=== PATIENT | female | born 1965 | race Caucasian/White ===

== ENCOUNTER 2017-08-23 08:12 | Inpatient (IN) | payer OTHER ==
[~2017-08-23] VITALS: Ht 167.6 cm; Wt 86.0 kg
[2017-08-23] VITALS (8 sets, daily range): BP systolic 113–151; BP diastolic 55–78; PULSE 77–106; RESP 16–20; TEMP 98–99.5; O2SAT 92–97
[2017-08-23] MEDS ORDERED: ACETAMINOPHEN 325 MG TAB PO ONE (08:45)
[2017-08-23] MEDS ORDERED: guaiFENesin/CODEINE SYRUP 200 MG/20 MG/10 ML CUP PO ONE (08:45)
[2017-08-23] MEDS: RESP: ALBUTEROL 2.5 MG/IPRATROPIUM 0.5 MG NEB (SCH) INH (08:48)
[2017-08-23 09:08] LABS: BASOPHIL % 0.2 % (0.0-2.0); EOSINOPHIL # 0.4 TH/MM3 (0-0.4); EOSINOPHIL % 2.2 % (0.0-4.0); HEMATOCRIT 37.3 % (35.0-46.0); HEMOGLOBIN 12.6 GM/DL (11.6-15.3); LYMPH % 8.8 % (9.0-44.0); LYMPHOCYTE # 1.5 TH/MM3 (1.0-4.8); MEAN CELL VOLUME 86.3 FL (80.0-100.0); MEAN CORPUSCULAR HEMOGLOBIN 29.1 PG (27.0-34.0); MEAN CORPUSCULAR HGB CONC 33.7 % (32.0-36.0); MEAN PLATELET VOLUME 8.3 FL (7.0-11.0); MONO % 8.1 % (0.0-8.0); MONOCYTE # 1.4 TH/MM3 (0-0.9); NEUT % 80.7 % (16.0-70.0); PLATELET COUNT 314 TH/MM3 (150-450); RED BLOOD COUNT 4.32 MIL/MM3 (4.00-5.30); RED CELL DISTRIBUTION WIDTH 13.4 % (11.6-17.2); WHITE BLOOD COUNT 17.3 TH/MM3 (4.0-11.0)
--- NOTE | 2017-08-23 09:10 | RADRPT ---
EXAM DATE/TIME: 08/23/2017 08:47 [facility] COMPARISON: No previous studies available for comparison. INDICATIONS : Short of breath cold x 5 days. MEDICAL HISTORY : None. SURGICAL HISTORY : None. ENCOUNTER: Initial ACUITY: 1 day PAIN SCORE: 0/10 LOCATION: Bilateral chest FINDINGS: A single view of the chest demonstrates the lungs to be symmetrically aerated without evidence of mas s, infiltrate or effusion. The cardiomediastinal contours are unremarkable. Osseous structures are intact. CONCLUSION: Normal examination. Tutu Shelton MD on August 23, 2017 at 9:07 Board Certified Radiologist. This report was verified electronically.
[2017-08-23 09:27] LABS: TROPONIN I LESS THAN 0.02 NG/ML (0.02-0.05)
[2017-08-23 09:30] LABS: BICARBONATE 24.3 MEQ/L (21.0-32.0); CALCIUM 8.7 MG/DL (8.5-10.1); CHLORIDE 107 MEQ/L (98-107); CREATININE 0.72 MG/DL (0.50-1.00); GLOMERULAR FILTRATION RATE 85 ML/MIN (>89); GLUCOSE,RANDOM 102 MG/DL (74-106); SODIUM (NA) 141 MEQ/L (136-145)
[2017-08-23 09:31] LABS: BLOOD UREA NITROGEN 16 MG/DL (7-18)
[2017-08-23] MEDS ORDERED: SODIUM CHLOR 0.9% 1000 ML INJ 1,000 ML IV ONE (09:45)
--- NOTE | 2017-08-23 09:47 | PD ---
HPI Chief Complaint: Cold / Flu Symptoms Time Seen by Provider: 08:29 Travel History International Travel<30 days: No Contact w/Intl Traveler<30days: No Traveled to known affect area: No History of Present Illness HPI 52yo F with cough, throat pain, bilateral ear pain and sob for 5 days. Said she felt warm today. Has midsternal chest pain with cough that is sharp. Pt is a cig smoker. Denies any n/v, abdominal pain, dysuria, hematuria, focal weakness or numbness. Said she had CAD with stents before but last cardiac cath 09/2016 showed patent arteries. EF is a little low at 42%. Office Support Assistant is from [facility]. PFSH Social History Tobacco Use: No Allergies-Medications (Allergen,Severity, Reaction): Coded Allergies: No Known Allergies (Unverified , 08/23/17) Reported Meds & Prescriptions Reported Meds & Active Scripts Active Reported Quetiapine (Quetiapine Fumarate) 50 Mg Tab 50 Mg PO BID Depakote DR (Divalproex Sodium) 250 Mg Tabdr 250 Mg PO BID Gabapentin 800 Mg Tab 900 Mg PO QID Aspirin 81 Mg Chew 81 Mg CHEW ONCE Atorvastatin (Atorvastatin Calcium) 10 Mg Tab 10 Mg PO HS Lisinopril 20 Mg Tab 20 Mg PO DAILY Aldactone (Spironolactone) 25 Mg Tab 25 Mg PO DAILY Review of Systems Except as stated in HPI: all other systems reviewed are Neg Physical Exam Narrative GENERAL: 52yo F in mild distress. SKIN: Focused skin assessment warm/dry. HEAD: Atraumatic. Normocephalic. EYES: Pupils equal and round. No scleral icterus. No injection or drainage. ENT: Throat: Clear. No Exudate. Uvula midline. TM wnl bilaterally. NECK: Trachea midline. No JVD. CARDIOVASCULAR: Regular rate and rhythm. No murmur appreciated. RESPIRATORY: No accessory muscle use. Clear to auscultation. Breath sounds equal bilaterally. GASTROINTESTINAL: Abdomen soft, non-tender, nondistended. MUSCULOSKELETAL: No obvious deformities. No clubbing. No cyanosis. No edema. NEUROLOGICAL: Awake and alert. No obvious cranial nerve deficits. Motor grossly within normal limits. Normal speech. PSYCHIATRIC: Appropriate mood and affect; insight and judgment normal. Data Data Last Documented VS Vital Signs Date Time Temp Pulse Resp B/P (MAP) Pulse Ox O2 Delivery O2 Flow Rate FiO2 08/23/17 10:38 93 20 151/70 (97) 92 Room Air 08/23/17 08:13 99.5 Orders Orders Complete Blood Count With Diff (08/23/17 08:41) Basic Metabolic Panel (Bmp) (08/23/17 08:41) B-Type Natriuretic Peptide (08/23/17 08:41) Act Partial Throm Time (Ptt) (08/23/17 08:41) Prothrombin Time / Inr (Pt) (08/23/17 08:41) Troponin I (08/23/17 08:41) Electrocardiogram (08/23/17 08:41) Chest, Single Ap (08/23/17 08:41) Albuterol-Ipratropium Neb (Duoneb Neb) (08/23/17 08:45) Influenzae A/B Antigen (08/23/17 08:41) Guaifen-Cod 200-20 Mg/10ml Liq (Robituss (08/23/17 08:45) Acetaminophen (Tylenol) (08/23/17 08:45) Sodium Chlor 0.9% 1000 Ml Inj (Ns 1000 M (08/23/17 09:45) Blood Culture (08/23/17 11:00) Lactic Acid Sepsis Protocol (08/23/17 11:00) Ceftriaxone Inj (Rocephin Inj) (08/23/17 11:00) Azithromycin (Zithromax) (08/23/17 11:00) Ct Thorax/ Chest Wo Iv Contras (08/23/17 ) Admit Order (Ed Use Only) (08/23/17 11:42) Labs Laboratory Tests Test 08/23/17 08:50 08/23/17 09:33 08/23/17 11:10 White Blood Count 17.3 TH/MM3 Red Blood Count 4.32 MIL/MM3 Hemoglobin 12.6 GM/DL Hematocrit 37.3 % Mean Corpuscular Volume 86.3 FL Mean Corpuscular Hemoglobin 29.1 PG Mean Corpuscular Hemoglobin Concent 33.7 % Red Cell Distribution Width 13.4 % Platelet Count 314 TH/MM3 Mean Platelet Volume 8.3 FL Neutrophils (%) (Auto) 80.7 % Lymphocytes (%) (Auto) 8.8 % Monocytes (%) (Auto) 8.1 % Eosinophils (%) (Auto) 2.2 % Basophils (%) (Auto) 0.2 % Neutrophils # (Auto) 14.0 TH/MM3 Lymphocytes # (Auto) 1.5 TH/MM3 Monocytes # (Auto) 1.4 TH/MM3 Eosinophils # (Auto) 0.4 TH/MM3 Basophils # (Auto) 0.0 TH/MM3 CBC Comment AUTO DIFF Differential Total Cells Counted 100 Neutrophils % (Manual) 63 % Band Neutrophils % 15 % Lymphocytes % 10 % Monocytes % 8 % Eosinophils % 3 % Basophils % 1 % Neutrophils # (Manual) 13.5 TH/MM3 Differential Comment FINAL DIFF MANUAL Platelet Estimate NORMAL Platelet Morphology Comment NORMAL Red Cell Morphology Comment NORMAL Blood Urea Nitrogen 16 MG/DL Creatinine 0.72 MG/DL Random Glucose 102 MG/DL Calcium Level 8.7 MG/DL Sodium Level 141 MEQ/L Potassium Level 4.8 MEQ/L Chloride Level 107 MEQ/L Carbon Dioxide Level 24.3 MEQ/L Anion Gap 10 MEQ/L Estimat Glomerular Filtration Rate 85 ML/MIN Troponin I LESS THAN 0.02 NG/ML Ethyl Alcohol Level LESS THAN 3 MG/DL Prothrombin Time 10.2 SEC Prothromb Time International Ratio 1.0 RATIO Activated Partial Thromboplast Time 26.9 SEC B-Type Natriuretic Peptide 23 PG/ML Lactic Acid Level 1.1 mmol/L MDM Medical Decision Making Medical Screen Exam Complete: Yes Emergency Medical Condition: Yes Interpretation(s) EKG: NSR 97bpm. Normal axis. Mild ST depression in V4-V6. TWI I, aVL, V4-V6. Differential Diagnosis URI vs. influenza vs. pneumonia Narrative Course 52yo F with sob, cough and chest pain with cough. Labs reviewed, leukocytosis at 17.3. She has 15% bandemia. Troponin negative. BNP 23. CXR negative. Pt is tachycardic at 106bpm initially and given NS IVF and heart rate is now 90s. Pt given robitussin, duonebs x2 because she is a smoker, acetaminophen. Pt reevaluated at bedside and feels a little better but still sob. Given that she has bandemia and signs of ischemia on EKG with no prior to compare to, will admit for sepsis and obtain blood culture, lactic acid and empirically treat with antibiotics. Will obtain CT chest- to further evaluate for any small pneumonia. Discussed with Dr. Reina and accepted to her service for sepsis with bandemia. Sepsis Criteria SIRS Criteria (2 or more): Heart rate over 90, WBC > 76940, < 4000 or > 10% bands Sepsis Criteria (SIRS+source): Infect source susp/known Diagnosis Primary Impression: Sepsis Qualified Codes: A41.9 - Sepsis, unspecified organism Admitting Information Admitting Physician Requests: it Brooklyn Milian DO Aug 23, 2017 09:47
[2017-08-23] MEDS ORDERED: ASPI-516 CHEW (09:50)
[2017-08-23] MEDS ORDERED: ATOR10TA15 PO (09:50)
[2017-08-23] MEDS ORDERED: LISI-515 PO (09:50)
[2017-08-23] MEDS ORDERED: DEPA250T2 PO (09:50)
[2017-08-23] MEDS ORDERED: SPIR25 PO (09:50)
[2017-08-23] MEDS ORDERED: GABA800T PO (09:50)
[2017-08-23] MEDS ORDERED: QUET5TAB PO (09:50)
[2017-08-23 10:00] LABS: PROTHROMBIN TIME - PATIENT 10.2 SEC (9.8-11.6)
[2017-08-23 10:00] LABS: BANDS 15 % (0-6); BASOPHILS 1 % (0-2); LYMPHOCYTES 10 % (9-44); MONOCYTES 8 % (0-8); NEUTROPHIL # MANUAL DIFF 13.5 TH/MM3 (1.8-7.7); POLYS (SEG NEUTROPHILS) 63 % (16-70)
[2017-08-23] MEDS ORDERED: AZITHROMYCIN 250 MG TAB PO ONE (11:00)
[2017-08-23] MEDS ORDERED: cefTRIAXone INJ 1,000 MG in SODIUM CHLORIDE 0.9% INJ 100 ML IV ONE (11:00)
[2017-08-23] MEDS ORDERED: SODIUM CHLORIDE 0.9% FLUSH 10 ML FLUSH IV FLUSH PRN (11:45)
[2017-08-23] MEDS ORDERED: NALOXONE HCL 0.4 MG/ML AMP IV PUSH PRN (11:45)
--- NOTE | 2017-08-23 11:52 | RADRPT ---
EXAM DATE/TIME: 08/23/2017 11:14 [facility] COMPARISON: No previous studies available for comparison. INDICATIONS : Cough and cogestion since Tuesday. RADIATION DOSE: 6.83 CTDIvol (mGy) MEDICAL HISTORY : Seizures. Hypertension. Cardiovascular disease SURGICAL HISTORY : Hysterectomy. ENCOUNTER: Initial ACUITY: 4 - 6 days PAIN SCALE: 7/10 LOCATION: chest TECHNIQUE: Volumetric scanning of the chest was performed. Using automated exposure control and adjustment of t he mA and/or kV according to patient size, radiation dose was kept as low as reasonably achievable to obtain optimal diagnostic quality images. DICOM format image data is available electronically for r eview and comparison. Follow-up recommendations for detected pulmonary nodules are based at a minimum on nodule size and pa tient risk factors according to Fleischner Society Guidelines. FINDINGS: LUNGS: There is no consolidation or pneumothorax. No concerning pulmonary nodule is visualized. There is mi nimal peribronchial cuffing in the right upper lobe. Some consolidation could be atelectasis in the r ight upper lobe adjacent to the fissure PLEURAE: There is no pleural thickening or pleural effusion. MEDIASTINUM: The heart and great vessels demonstrate no acute abnormality. There is clearly abnormal mediastinal a denopathy in the pretracheal, subcarinal and both hilar regions. Coronary atherosclerotic disease AXILLAE: Within normal limits. No lymphadenopathy. MUSCULOSKELETAL: Within normal limits for patient age. MISCELLANEOUS: The visualized upper abdominal organs demonstrate no acute abnormality. CONCLUSION: Peribronchial cuffing the right upper lobe with some groundglass of a likely atelectasis. Definite me diastinal adenopathy and hilar fullness of uncertain significance. Tutu Shelton MD on August 23, 2017 at 11:48 Board Certified Radiologist. This report was verified electronically.
--- NOTE | 2017-08-23 15:12 | EKG ---
Date Performed: 08/23/2017 Time Performed: 09:54:09 PTAGE: 52 years EKG: Sinus rhythm POSSIBLE RIGHT VENTRICULAR CONDUCTION DELAY Nonspecific ST and T wave abnormalities ABNORMAL ECG No prior electrocardiogram available for comparison. DOCTOR: Berny Sarabia Interpretating Date/Time 08/23/2017 15:10:40
[2017-08-23 16:01] LABS: BILIRUBIN, URINE NEG (NEG); BLOOD, URINE SMALL (NEG); GLUCOSE,URINE NEG (NEG); KETONE, URINE NEG (NEG); MUCUS URINE FEW /lpf (OCC); NITRITE,URINE NEG (NEG); PH, URINE 5.5 (5.0-8.5); SQUAMOUS EPITHELIAL CELL URINE <1 /hpf (0-5); URINE COLOR LIGHT-YELLOW (YELLW/STRAW); URINE LEUKOCYTE ESTERASE NEG (NEG)
[2017-08-23] MEDS ORDERED: NITROGLYCERIN 0.4 MG SL 25 TABS/BTL SL PRN (17:15)
[2017-08-23] MEDS ORDERED: ASPIRIN 325 MG TAB PO ONE (17:15)
[2017-08-23] MEDS ORDERED: ASPIRIN 81 MG CHEW TAB CHEW SCH (17:30)
[2017-08-23] MEDS ORDERED: SENNOSIDES 8.6 MG TAB PO PRN (17:45)
[2017-08-23] MEDS ORDERED: MAGNESIUM HYDROXIDE SUSP 30 ML CUP PO PRN (17:45)
[2017-08-23] MEDS ORDERED: ACETAMINOPHEN 325 MG TAB PO PRN (17:45)
[2017-08-23] MEDS ORDERED: ONDANSETRON HCL 4 MG/2 ML VIAL IVP PRN (17:45)
[2017-08-23] MEDS ORDERED: LACTULOSE SYRUP 20 GM/30 ML CUP PO PRN (17:45)
[2017-08-23] MEDS ORDERED: BISACODYL 10 MG SUPP RECTAL PRN (17:45)
[2017-08-23] MEDS ORDERED: GABAPENTIN 400 MG CAP PO SCH (18:00)
[2017-08-23] MEDS ORDERED: RESP: ALBUTEROL 2.5 MG/3 ML NEB (PRN) NEB (18:00)
--- NOTE | 2017-08-23 18:05 | HHI.HP ---
HPI Service [facility] Hospitalists Primary Care Physician No Primary Care Physician Admission Diagnosis Sepsis, chest pain Diagnoses: Chief Complaint: Cough with sputum production Fatigue Fever and chills Chest pain Shortness of breath Travel History International Travel<30 Days: No Contact w/Intl Traveler <30 Da: No Traveled to Known Affected Are: No Sepsis Criteria SIRS Criteria (2 or more): Heart rate over 90, WBC > 33066, < 4000 or > 10% bands Sepsis Criteria (SIRS+source): Infect source susp/known Criteria Outcome: Meets sepsis criteria History of Present Illness This is a 52-year-old female with a past medical history significant for coronary artery disease status post cardiac stent implantation in 2008 with recent cardiac catheterization September 2016 in [facility] showing patent arteries, CHF with reported EF 42%, dyslipidemia and bipolar disorder who presents to [facility] ED with complaints of shortness of breath, cough with sputum production, sore throat, bilateral ear pain, body ache and pleuritic chest pain with cough for the past 5 days. She states she decided to come in to the ED today after developing chills and involuntary shaking. She reports generalized fatigue. She describes her chest pain as midsternal, sharp , nonradiating and associated with cough. She states she's been feverish but has not recorded a temperature. States that her cough is productive and reports that it's "many colors". She denies any nausea, vomiting or abdominal pain. She reports a good appetite. She lives in transitional group housing and states that multiple residents are sick as well. She smokes about a pack of cigarettes a day. She recently moved to the area from [facility] in March of this year. She denies any complaints of bilateral lower extremity swelling or edema. She does not have a sap basis consultant that she follows with in the area. Shee has a history of alcohol abuse but no longer drinks. Review of Systems Except as stated in HPI: all other systems reviewed are Neg Past Family Social History Past Medical History Hypertension Coronary artery disease status post previous cardiac stent implants 2008 with recent cardiac catheterization September 2016 revealing patent arteries Dyslipidemia CHF with reported EF 42% Bipolar disorder Tobaccoism Past Surgical History Pilonidal cysts Bilateral carpal tunnel release Hysterectomy Hernia repair Reported Medications Quetiapine (Quetiapine Fumarate) 50 Mg Tab 50 Mg PO BID Depakote DR (Divalproex Sodium) 250 Mg Tabdr 250 Mg PO BID Gabapentin 800 Mg Tab 900 Mg PO QID Aspirin 81 Mg Chew 81 Mg CHEW ONCE Atorvastatin (Atorvastatin Calcium) 10 Mg Tab 10 Mg PO HS Lisinopril 20 Mg Tab 20 Mg PO DAILY Aldactone (Spironolactone) 25 Mg Tab 25 Mg PO DAILY Allergies: Coded Allergies: No Known Allergies (Unverified , 08/23/17) Active Ordered Medications Current Medications Medications (Trade) Dose Ordered Sig/Phill Route Start Time Stop Time Status Last Admin (NS Flush) 2 ml UNSCH PRN IV FLUSH 08/23/17 11:45 (NS Flush) 2 ml BID IV FLUSH 08/23/17 21:00 (Narcan Inj) 0.4 mg UNSCH PRN IV PUSH 08/23/17 11:45 Levofloxacin/ Dextrose 150 ml @ 100 mls/hr Q24H IV 08/24/17 09:00 (Flu (Quadrivalent) Vaccine Inj) 0.5 ml ONCE ONCE IM 08/24/17 10:00 08/24/17 10:01 Family History Father, congestive heart failure Social History Patient reports tobacco use of a pack per day starting when she was a teenager. She has a history of alcoholism but no longer drinks. She denies any illicit drug use. Physical Exam Vital Signs Vital Signs Date Time Temp Pulse Resp B/P (MAP) Pulse Ox O2 Delivery O2 Flow Rate FiO2 08/23/17 15:37 98.2 92 18 126/71 (89) 97 08/23/17 13:21 98.0 91 18 117/55 (75) 94 08/23/17 13:15 08/23/17 13:08 83 18 113/55 (74) 96 Room Air 08/23/17 10:38 93 20 151/70 (97) 92 Room Air 08/23/17 08:13 99.5 106 16 138/77 (97) 97 Room Air Physical Exam GENERAL: This is a well-nourished, well-developed toxic-appearing female patient, in no apparent distress. Awake and alert. SKIN: No rashes, ecchymoses or lesions. Warm and dry. HEAD: Atraumatic. Normocephalic. No temporal or scalp tenderness. EYES: Pupils equal round and reactive. Extraocular motions intact. No scleral icterus. No injection or drainage. ENT: Nose without bleeding or purulent drainage. Throat without erythema, tonsillar hypertrophy or exudate. Uvula midline. Airway patent. NECK: Trachea midline. No lymphadenopathy. Supple, nontender, no meningeal signs. CARDIOVASCULAR: Regular rate and rhythm without murmurs, gallops, or rubs. RESPIRATORY: Diminished breath sounds, diffuse expiratory wheezing throughout. GASTROINTESTINAL: Abdomen soft, non-tender, nondistended. No hepato-splenomegaly , or palpable masses. No guarding. MUSCULOSKELETAL: Extremities without clubbing, cyanosis, or edema. No joint tenderness, effusion, or edema noted. No calf tenderness. NEUROLOGICAL: Awake and alert. Able to move all extremities spontaneously. No focal neurologic finding. Normal speech. Laboratory Laboratory Tests Test 08/23/17 08:50 08/23/17 09:33 08/23/17 11:10 08/23/17 15:40 White Blood Count 17.3 Red Blood Count 4.32 Hemoglobin 12.6 Hematocrit 37.3 Mean Corpuscular Volume 86.3 Mean Corpuscular Hemoglobin 29.1 Mean Corpuscular Hemoglobin Concent 33.7 Red Cell Distribution Width 13.4 Platelet Count 314 Mean Platelet Volume 8.3 Neutrophils (%) (Auto) 80.7 Lymphocytes (%) (Auto) 8.8 Monocytes (%) (Auto) 8.1 Eosinophils (%) (Auto) 2.2 Basophils (%) (Auto) 0.2 Neutrophils # (Auto) 14.0 Lymphocytes # (Auto) 1.5 Monocytes # (Auto) 1.4 Eosinophils # (Auto) 0.4 Basophils # (Auto) 0.0 CBC Comment AUTO DIFF Differential Total Cells Counted 100 Neutrophils % (Manual) 63 Band Neutrophils % 15 Lymphocytes % 10 Monocytes % 8 Eosinophils % 3 Basophils % 1 Neutrophils # (Manual) 13.5 Differential Comment FINAL DIFF MANUAL Platelet Estimate NORMAL Platelet Morphology Comment NORMAL Red Cell Morphology Comment NORMAL Blood Urea Nitrogen 16 Creatinine 0.72 Random Glucose 102 Calcium Level 8.7 Sodium Level 141 Potassium Level 4.8 Chloride Level 107 Carbon Dioxide Level 24.3 Anion Gap 10 Estimat Glomerular Filtration Rate 85 Troponin I LESS THAN 0.02 Ethyl Alcohol Level LESS THAN 3 Prothrombin Time 10.2 Prothromb Time International Ratio 1.0 Activated Partial Thromboplast Time 26.9 B-Type Natriuretic Peptide 23 Lactic Acid Level 1.1 Urine Color LIGHT-YELLOW Urine Turbidity CLEAR Urine pH 5.5 Urine Specific Gilbert 1.010 Urine Protein NEG Urine Glucose (UA) NEG Urine Ketones NEG Urine Occult Blood SMALL Urine Nitrite NEG Urine Bilirubin NEG Urine Urobilinogen LESS THAN 2.0 Urine Leukocyte Esterase NEG Urine RBC 2 Urine Squamous Epithelial Cells <1 Urine Mucus FEW Microscopic Urinalysis Comment CULT NOT INDICATED Urine Opiates Screen POS Urine Barbiturates Screen NEG Urine Amphetamines Screen NEG Urine Benzodiazepines Screen NEG Urine Cocaine Screen NEG Urine Cannabinoids Screen NEG Date/Time Source Procedure Growth Status 08/23/17 11:18 Blood Peripheral Aerobic Blood Culture Pending Received 08/23/17 11:18 Blood Peripheral Anaerobic Blood Culture Pending Received 08/23/17 09:15 Nasal Aspirate Influenza Types A,B Antigen (DEENA) - Final NEGATIVE FOR FLU A AND B ANTIGEN.... Complete Result Diagram: 08/23/17 0850 08/23/17 0850 Imaging Current Medications Medications (Trade) Dose Ordered Sig/Phill Route Start Time Stop Time Status Last Admin (NS Flush) 2 ml UNSCH PRN IV FLUSH 08/23/17 11:45 (NS Flush) 2 ml BID IV FLUSH 08/23/17 21:00 (Narcan Inj) 0.4 mg UNSCH PRN IV PUSH 08/23/17 11:45 Levofloxacin/ Dextrose 150 ml @ 100 mls/hr Q24H IV 08/24/17 09:00 (Flu (Quadrivalent) Vaccine Inj) 0.5 ml ONCE ONCE IM 08/24/17 10:00 08/24/17 10:01 Caprini VTE Risk Assessment Caprini VTE Risk Assessment: No/Low Risk (score <= 1) Caprini Risk Assessment Model Point Value = 1 Point Value = 2 Point Value = 3 Point Value = 5 Age 41-60 Minor surgery BMI > 25 kg/m2 Swollen legs Varicose veins or History of unexplained or recurrent spontaneous Oral contraceptives or hormone replacement Sepsis (< 1 month) Serious lung disease, including pneumonia (< 1 month) Abnormal pulmonary function Acute myocardial infarction Congestive heart failure (< 1 month) History of inflammatory bowel disease Medical patient at bed rest Age 61-74 Arthroscopic surgery Major open surgery (> 45 min) Laparoscopic surgery (> 45 min) Malignancy Confined to bed (> 72 hours) Immobilizing plaster cast Central venous access Age >= 75 History of VTE Family history of VTE Factor V Leiden Prothrombin [id number] Lupus anticoagulant Anticardiolipin antibodies Elevated serum homocysteine Heparin-induced thrombocytopenia Other congenital or acquired thrombophilia Stroke (< 1 month) Elective arthroplasty Hip, pelvis, or leg fracture Acute spinal cord injury (< 1 month) Prophylaxis Regimen Total Risk Factor Score Risk Level Prophylaxis Regimen 0-1 Low Early ambulation 2 Moderate Order ONE of the following: *Sequential Compression Device (SCD) *Heparin 5000 units SQ BID 3-4 Higher Order ONE of the following medications: *Heparin 5000 units SQ TID *Enoxaparin/Lovenox 40 mg SQ daily (WT < 150 kg, CrCl > 30 mL/min) *Enoxaparin/Lovenox 30 mg SQ daily (WT < 150 kg, CrCl > 10-29 mL/min) *Enoxaparin/Lovenox 30 mg SQ BID (WT < 150 kg, CrCl > 30 mL/min) AND/OR *Sequential Compression Device (SCD) 5 or more Highest Order ONE of the following medications: *Heparin 5000 units SQ TID (Preferred with Epidurals) *Enoxaparin/Lovenox 40 mg SQ daily (WT < 150 kg, CrCl > 30 mL/min) *Enoxaparin/Lovenox 30 mg SQ daily (WT < 150 kg, CrCl > 10-29 mL/min) *Enoxaparin/Lovenox 30 mg SQ BID (WT < 150 kg, CrCl > 30 mL/min) AND *Sequential Compression Device (SCD) Assessment and Plan Assessment and Plan Patient meets sepsis criteria with a elevated heart rate of 106, leukocytosis with white count of 17.3 and bandemia, rigors with source of community acquired pneumonia Suspect underlying COPD, in acute exacerbation - Chest x-ray feels no acute disease process, images personally reviewed - Chest CT reveals peribronchial cuffing in the right upper lobe with ground glass appearance, likely atelectasis, mediastinal adenopathy and hilar fullness , images reviewed personally - Lactic acid 1.1 - Patient given IV azithromycin and ceftriaxone in the ED. Continue with IV Levaquin. - Prednisone 40mg po daily. Mucinex ER 600mg BID. - Scheduled DuoNebs - Influenza negative. Monitor white count. Obtain UA. Follow up on blood cultures. Obtain sputum culture. Obtain antigen for Legionella and pneumococcal. - IS at bedside, encourage use - Supplemental oxygen to maintain O2 sats above 92%. - Supportive care Chest pain, atypical, R/O ACS CAD s/p cardiac stent implants 2008 Cardiac catheterization 09/2016 revealing patent - complains of midsternal chest pain with cough, likely pleuritic - EKG revealing ST depressions in lateral leads, personally reviewed. Initial troponin negative. Continue to trend cardiac enzymes and EKGs. - Continuous cardiac monitoring - Obtain fasting lipid panel - ASA 325mg now. Continue on ASA 81mg daily. - IV Morphine and Nitro sl prn chest pain CHF with reported EF 42%, not in acute exacerbation - Patient appears euvolemic - BNP 23 - Resume patient on home dose of lisinopril 20 mg daily, Aldactone 25 mg daily - Initiate low-dose beta monet - Monitor for any signs of fluid overload Dyslipidemia - Resume patient on home dose of atorvastatin 10 mg daily Ongoing tobaccoism - Discussed with patient importance of cessation. Nicotine patch ordered. Bipolar disorder - Resume patient on Depakote 250 mg by mouth twice a day, gabapentin 900 mg 4 times a day and Quetiapine 50mg po BID DVT prophylaxis - Bilateral SCD/SARAH hose Discussed Condition With Patient, nursing staff and Dr. Palomino Physician Certification 2 Midnight Certification Type: Admission for Inpatient Services Order for Inpatient Services The services are ordered in accordance with Medicare regulations or non- Medicare payer requirements, as applicable. In the case of services not specified as inpatient-only, they are appropriately provided as inpatient services in accordance with the 2-midnight benchmark. Estimated LOS (days): 3 3 days is the estimated time the patient will need to remain in the hospital, assuming treatment plan goals are met and no additional complications. Post-Hospital Plan: Not yet determined Zoraida Bowens Aug 23, 2017 18:05
[2017-08-23] MEDS ORDERED: MORPHINE SULFATE 2 MG/ML INJ IV PRN (18:30)
[2017-08-23] MEDS ORDERED: PILL SPLITTER OTHER PRN (18:30)
[2017-08-23] MEDS: predniSONE 20 MG TAB PO SCH (18:57)
[2017-08-23] MEDS: NICOTINE 21 MG/24 HR PATCH T-DERMAL SCH (18:57)
[2017-08-23] MEDS: GABAPENTIN 300 MG CAP PO SCH (19:05)
[2017-08-23] MEDS: RESP: ALBUTEROL 2.5 MG/IPRATROPIUM 0.5 MG NEB (SCH) NEB (20:37)
--- NOTE | 2017-08-23 21:36 | EKG ---
Date Performed: 08/23/2017 Time Performed: 17:39:26 PTAGE: 52 years EKG: Sinus rhythm WITH OCCASIONAL VENTRICULAR PREMATURE COMPLEXES LOW QRS VOLTAGE IN PRECORDIAL LEADS INCOMPLETE RIGHT BUNDLE BRANCH BLOCK SEPTAL MYOCARDIAL INFARCTION ABNORMAL ECG Compared to prior electrocardiogram, P remature ventricular contractions are now present . NO PREVIOUS TRACING DOCTOR: Berny Sarabia Interpretating Date/Time 08/23/2017 21:36:20
[2017-08-24] VITALS (9 sets, daily range): BP systolic 100–132; BP diastolic 55–67; PULSE 60–98; RESP 15–18; TEMP 97.6–98.1; O2SAT 92–96
[2017-08-24] MEDS: guaiFENesin E.R. 600 MG TAB PO SCH ×3 (00:40→20:52)
[2017-08-24] MEDS: DIVALPROEX SODIUM DELAYED RELEASE 250 MG TAB PO SCH ×3 (00:40→20:52)
[2017-08-24] MEDS: DOCUSATE SODIUM 50 MG/SENNA 8.6 MG TAB PO SCH ×3 (00:41→20:53)
[2017-08-24] MEDS: METOPROLOL TARTRATE 25 MG TAB PO SCH ×2 (00:41→08:45)
[2017-08-24] MEDS: ATORVASTATIN 10 MG TAB PO SCH ×2 (00:41→20:53)
[2017-08-24] MEDS: QUEtiapine FUMARATE 25 MG TAB PO SCH ×3 (00:41→20:53)
[2017-08-24] MEDS: GABAPENTIN 300 MG CAP PO SCH ×5 (00:41→20:52)
[2017-08-24] MEDS: SODIUM CHLORIDE 0.9% FLUSH 10 ML FLUSH IV FLUSH SCH ×3 (00:42→20:52)
[2017-08-24] MEDS: RESP: ALBUTEROL 2.5 MG/IPRATROPIUM 0.5 MG NEB (SCH) NEB ×4 (08:00→20:38)
[2017-08-24] MEDS: LEVOFLOXACIN 750 MG PREMIX INJ 150 ML IV SCH (08:45)
[2017-08-24] MEDS: SPIRONOLACTONE 25 MG TAB PO SCH (08:45)
[2017-08-24] MEDS: REMOVE OLD PATCH T-DERMAL SCH (08:45)
[2017-08-24] MEDS: NICOTINE 21 MG/24 HR PATCH T-DERMAL SCH (08:45)
[2017-08-24] MEDS: LISINOPRIL 20 MG TAB PO SCH (08:45)
[2017-08-24] MEDS: predniSONE 20 MG TAB PO SCH (08:45)
--- NOTE | 2017-08-24 08:55 | EKG ---
Date Performed: 08/23/2017 Time Performed: 23:37:44 PTAGE: 52 years EKG: Sinus rhythm NONSPECIFIC T-WAVE ABNORMALITY BORDERLINE ECG Compared to prior electrocardiogram, Premature ventric ular contractions no longer present. PREVIOUS TRACING : 08/23/2017 17.39 DOCTOR: Berny Sarabia Interpretating Date/Time 08/24/2017 08:54:26
[2017-08-24] MEDS ORDERED: INFLUENZA VIRUS VACCINE (QUADRIVALENT) 0.5 ML SYR IM ONE (10:00)
[2017-08-24 11:09] LABS: BASOPHIL % 0.1 % (0.0-2.0); EOSINOPHIL % 0.1 % (0.0-4.0); HEMATOCRIT 34.9 % (35.0-46.0); HEMOGLOBIN 11.5 GM/DL (11.6-15.3); LYMPH % 7.8 % (9.0-44.0); LYMPHOCYTE # 1.2 TH/MM3 (1.0-4.8); MEAN CELL VOLUME 87.5 FL (80.0-100.0); MEAN CORPUSCULAR HEMOGLOBIN 28.8 PG (27.0-34.0); MONO % 4.6 % (0.0-8.0); MONOCYTE # 0.7 TH/MM3 (0-0.9); NEUT % 87.4 % (16.0-70.0); PLATELET COUNT 291 TH/MM3 (150-450); RED BLOOD COUNT 3.98 MIL/MM3 (4.00-5.30); RED CELL DISTRIBUTION WIDTH 13.5 % (11.6-17.2)
[2017-08-24 11:28] LABS: BICARBONATE 28.6 MEQ/L (21.0-32.0); CALCIUM 8.5 MG/DL (8.5-10.1); CREATININE 0.75 MG/DL (0.50-1.00)
[2017-08-24 11:31] LABS: CHOLESTEROL/ HDL RATIO 3.69 RATIO; HDL CHOLESTEROL 41.4 MG/DL (40.0-60.0)
--- NOTE | 2017-08-24 12:23 | HHI.PR ---
Subjective Remarks in no acute distress. still with some cough but she says that overall she's feeling better today. no chest pain. afebrile. Objective Vitals Vital Signs Date Time Temp Pulse Resp B/P (MAP) Pulse Ox O2 Delivery O2 Flow Rate FiO2 08/24/17 08:33 115/61 (79) 08/24/17 08:24 97.9 79 18 106/58 (74) 95 08/24/17 06:55 60 08/24/17 04:18 97.6 65 17 132/67 (88) 94 08/23/17 23:32 98.1 77 18 123/64 (83) 93 08/23/17 21:09 98.0 97 18 124/78 (93) 96 08/23/17 20:39 94 08/23/17 15:37 98.2 92 18 126/71 (89) 97 08/23/17 13:21 98.0 91 18 117/55 (75) 94 08/23/17 13:15 08/23/17 13:08 83 18 113/55 (74) 96 Room Air I/O 08/23/17 08/23/17 08/23/17 08/24/17 08/24/17 08/24/17 07:00 15:00 23:00 07:00 15:00 23:00 Intake Total 1100 ml Balance 1100 ml Intake IV Total 1100 ml Result Diagram: 08/24/17 1038 08/24/17 1038 Imaging Last Impressions Chest X-Ray 08/23/17 0841 Signed Impressions: Service Date/Time: Wednesday, August 23, 2017 08:47 - CONCLUSION: Normal examination. Tutu Shelton MD Chest CT 08/23/17 0000 Signed Impressions: Service Date/Time: Wednesday, August 23, 2017 11:14 - CONCLUSION: Peribronchial cuffing the right upper lobe with some groundglass of a likely atelectasis. Definite mediastinal adenopathy and hilar fullness of uncertain significance. Tutu Shelton MD Objective Remarks GENERAL: This is a well-nourished, well-developed patient, in no apparent distress. CARDIOVASCULAR: Regular rate and regular rhythm without murmurs, gallops, or rubs. RESPIRATORY: Clear to auscultation. Breath sounds equal bilaterally. No wheezes , rales, or rhonchi. GASTROINTESTINAL: Abdomen soft, non-tender, nondistended. Normal, active bowel sounds MUSCULOSKELETAL: Extremities without clubbing, cyanosis, or edema. NEURO: Alert & Oriented x4 to person, place, time, situation. Moves all ext x4 Medications and IVs Inpatient Medications Acetaminophen (Tylenol) 650 mg Q4H PRN PO TEMP > 100.4; Start 08/23/17 at 17: 45 Albuterol Sulfate (Albuterol Neb) 2.5 mg Q2HR NEB PRN NEB cough, dyspnea, wheezing; Start 08/23/17 at 18:00 Albuterol/ Ipratropium (Duoneb Neb) 1 ampule Q4HR WHILE AWAKE NEB NEB Last administered on 08/24/17 08:00; Start 08/23/17 at 20:00 Aspirin (Aspirin) 325 mg NOW ONCE PO Last administered on 08/23/17 19:05; Start 08/23/17 at 17:15; Stop 08/23/17 at 17:18; Status DC Atorvastatin Calcium (Lipitor) 10 mg HS PO Last administered on 08/24/17 00: 41; Start 08/23/17 at 21:00 Azithromycin (Zithromax) 500 mg ONCE ONCE PO Last administered on 08/23/17 12:07; Start 08/23/17 at 11:00; Stop 08/23/17 at 11:01; Status DC Bisacodyl (Dulcolax Supp) 10 mg DAILY PRN RECTAL SEVERE CONSITIPATION; Start 08/23/17 at 17:45 Ceftriaxone Sodium 1000 mg/ Sodium Chloride 100 ml @ 200 mls/hr ONCE ONCE IV Last administered on 08/23/17 12:07; Start 08/23/17 at 11:00; Stop 08/23/17 at 11:29; Status DC Divalproex Sodium (Depakote Dr) 250 mg BID PO Last administered on 08/24/17 08:45; Start 08/23/17 at 21:00 Gabapentin (Neurontin) 900 mg QID PO Last administered on 08/24/17 08:45; Start 08/23/17 at 19:00 Guaifenesin (Mucinex Er) 600 mg BID PO Last administered on 08/24/17 08:45; Start 08/23/17 at 21:00 Guaifenesin/ Codeine Phosphate (Robitussin Ac 200-20 Mg/10 ml Liq) 10 ml ONCE ONCE PO Last administered on 08/23/17 09:44; Start 08/23/17 at 08:45; Stop 08/23/17 at 08:46; Status DC Influenza Virus Vaccine (Flu (Quadrivalent) Vaccine Inj) 0.5 ml ONCE ONCE IM ; Start 08/24/17 at 10:00; Stop 08/24/17 at 10:01; Status DC Lactulose (Lactulose Liq) 30 ml DAILY PRN PO SEVERE CONSITIPATION; Start 08/23 at 17:45 Levofloxacin/ Dextrose 150 ml @ 100 mls/hr Q24H IV Last administered on 08:45; Start 08/24/17 at 09:00 Lisinopril (Prinivil) 20 mg DAILY PO Last administered on 08/24/17 08:45; Start 08/24/17 at 09:00 Magnesium Hydroxide (Milk Of Magnesia Liq) 30 ml Q12H PRN PO Mild constipation ; Start 08/23/17 at 17:45 Metoprolol Tartrate (Lopressor) 12.5 mg Q12HR PO Last administered on 08:45; Start 08/23/17 at 21:00 Miscellaneous (Pill Splitter) 1 ea UNSCH PRN OTHER SEE LABEL COMMENTS; Start 08/23/17 at 18:30 Miscellaneous Information 1 DAILY T-DERMAL Last administered on 08/24/17 08: 45; Start 08/24/17 at 09:00 Morphine Sulfate (Morphine Inj) 2 mg Q30M PRN IV CHEST PAIN; Start 08/23/17 at 18:30 Naloxone HCl (Narcan Inj) 0.4 mg UNSCH PRN IV PUSH SEE LABEL COMMENTS; Start 08/23/17 at 11:45 Nicotine (Habitrol 21 Mg Patch.24 Hr) 1 patch DAILY T-DERMAL Last administered on 08/24/17 08:45; Start 08/23/17 at 18:00 Nitroglycerin (Nitrostat Sl) 0.4 mg Q5M PRN SL X 3 doses for chest pain; Start 08/23/17 at 17:15 Ondansetron HCl (Zofran Inj) 4 mg Q6H PRN IVP NAUSEA OR VOMITING; Start at 17:45 Prednisone (Deltasone) 40 mg DAILY PO Last administered on 08/24/17 08:45; Start 08/23/17 at 18:00 Quetiapine Fumarate (SEROquel) 50 mg BID PO Last administered on 08/24/17 08: 45; Start 08/23/17 at 21:00 Senna/Docusate Sodium (Courtney-Colace) 1 tab BID PO Last administered on 00:41; Start 08/23/17 at 21:00 Sennosides (Senokot) 17.2 mg Q12H PRN PO Moderate constipation; Start at 17:45 Sodium Chloride (NS Flush) 2 ml BID IV FLUSH Last administered on 08/24/17 08 :45; Start 08/23/17 at 21:00 Spironolactone (Aldactone) 25 mg DAILY PO Last administered on 08/24/17 08:45 ; Start 08/24/17 at 09:00 A/P Assessment and Plan A/P Suspect underlying COPD, in acute exacerbation - Chest x-ray no acute disease process. - Chest CT reveals peribronchial cuffing in the right upper lobe with ground glass appearance, likely atelectasis, mediastinal adenopathy and hilar fullness. - Lactic acid 1.1 - Patient given IV azithromycin and ceftriaxone in the ED. Continue with IV Levaquin. - Prednisone 40mg po daily. Mucinex ER 600mg BID. - Scheduled DuoNebs - Influenza negative. Monitor white count. Follow up on blood and sputum cultures. - IS at bedside, encourage use - Supplemental oxygen to maintain O2 sats above 92%. - Supportive care Chest pain, atypical, R/O ACS CAD s/p cardiac stent implants 2008 Cardiac catheterization 09/2016 revealing patent - complains of midsternal chest pain with cough, likely pleuritic - serial troponin negative. - Continuous cardiac monitoring - Continue on ASA 81mg daily. - IV Morphine and Nitro sl prn chest pain CHF with reported EF 42%, not in acute exacerbation; chronic systolic - Patient appears euvolemic - BNP 23 - Resume patient on home dose of lisinopril 20 mg daily, Aldactone 25 mg daily - change BB to metoprolol succinate - Monitor for any signs of fluid overload Dyslipidemia - Resume patient on home dose of atorvastatin 10 mg daily Ongoing tobaccoism - Discussed with patient importance of cessation. Nicotine patch ordered. Bipolar disorder - Resume patient on Depakote 250 mg by mouth twice a day, gabapentin 900 mg 4 times a day and Quetiapine 50mg po BID DVT prophylaxis - Bilateral SCD/SARAH hose Discharge Planning dc home within the next 24-48 hrs if continues to improve. Vandana Vasquez MD Aug 24, 2017 12:23
[2017-08-25 01:30] VITALS: BP 107/61; PULSE 87; RESP 17; TEMP 98.1; O2SAT 95
[2017-08-25 02:03] VITALS: O2SAT 95
[2017-08-25 05:14] VITALS: BP 105/61; PULSE 72; RESP 18; TEMP 98.2; O2SAT 95
[2017-08-25] MEDS: RESP: ALBUTEROL 2.5 MG/IPRATROPIUM 0.5 MG NEB (SCH) NEB ×2 (08:00→12:00)
[2017-08-25 08:13] VITALS: BP 131/62; PULSE 63; RESP 24; TEMP 97.8; O2SAT 93
[2017-08-25] MEDS: DIVALPROEX SODIUM DELAYED RELEASE 250 MG TAB PO SCH (08:43)
[2017-08-25] MEDS: guaiFENesin E.R. 600 MG TAB PO SCH (08:43)
[2017-08-25] MEDS: SPIRONOLACTONE 25 MG TAB PO SCH (08:44)
[2017-08-25] MEDS: LISINOPRIL 20 MG TAB PO SCH (08:44)
[2017-08-25] MEDS: GABAPENTIN 300 MG CAP PO SCH ×2 (08:44→12:43)
[2017-08-25] MEDS: QUEtiapine FUMARATE 25 MG TAB PO SCH (08:44)
[2017-08-25] MEDS: LEVOFLOXACIN 750 MG PREMIX INJ 150 ML IV SCH (08:45)
[2017-08-25] MEDS: predniSONE 20 MG TAB PO SCH (08:45)
[2017-08-25] MEDS: SODIUM CHLORIDE 0.9% FLUSH 10 ML FLUSH IV FLUSH SCH (08:45)
[2017-08-25] MEDS: REMOVE OLD PATCH T-DERMAL SCH (08:46)
[2017-08-25] MEDS: DOCUSATE SODIUM 50 MG/SENNA 8.6 MG TAB PO SCH (08:46)
[2017-08-25] MEDS: NICOTINE 21 MG/24 HR PATCH T-DERMAL SCH (08:46)
--- NOTE | 2017-08-25 08:50 | HHI.PR ---
Subjective Remarks in no acute distress. generally she's feeling better. sob is improving but still with some dry cough. no chest pain. afebrile. Objective Vitals Vital Signs Date Time Temp Pulse Resp B/P (MAP) Pulse Ox O2 Delivery O2 Flow Rate FiO2 08/25/17 08:13 97.8 63 24 131/62 (85) 93 08/25/17 05:14 98.2 72 18 105/61 (76) 95 08/25/17 02:03 95 21 08/25/17 01:30 98.1 87 17 107/61 (76) 95 08/24/17 21:38 98.1 98 18 100/57 (71) 94 08/24/17 20:34 96 Nasal Cannula 3.00 08/24/17 17:48 98.1 94 15 119/59 (79) 92 08/24/17 14:28 98.1 81 18 108/57 (74) 92 08/24/17 12:00 97.9 83 18 116/55 (75) 94 Result Diagram: 08/24/17 1038 08/24/17 1038 Imaging Last Impressions Chest X-Ray 08/23/17 0841 Signed Impressions: Service Date/Time: Wednesday, August 23, 2017 08:47 - CONCLUSION: Normal examination. Tutu Shelton MD Chest CT 08/23/17 0000 Signed Impressions: Service Date/Time: Wednesday, August 23, 2017 11:14 - CONCLUSION: Peribronchial cuffing the right upper lobe with some groundglass of a likely atelectasis. Definite mediastinal adenopathy and hilar fullness of uncertain significance. Tutu Shelton MD Objective Remarks GENERAL: This is a well-nourished, well-developed patient, in no apparent distress. CARDIOVASCULAR: Regular rate and regular rhythm without murmurs, gallops, or rubs. RESPIRATORY: Clear to auscultation. Breath sounds equal bilaterally. No wheezes , rales, or rhonchi. GASTROINTESTINAL: Abdomen soft, non-tender, nondistended. Normal, active bowel sounds MUSCULOSKELETAL: Extremities without clubbing, cyanosis, or edema. NEURO: Alert & Oriented x4 to person, place, time, situation. Moves all ext x4 Procedures none Medications and IVs Inpatient Medications Acetaminophen (Tylenol) 650 mg Q4H PRN PO TEMP > 100.4; Start 08/23/17 at 17: 45 Albuterol Sulfate (Albuterol Neb) 2.5 mg Q2HR NEB PRN NEB cough, dyspnea, wheezing; Start 08/23/17 at 18:00 Albuterol/ Ipratropium (Duoneb Neb) 1 ampule Q4HR WHILE AWAKE NEB NEB Last administered on 08/24/17 20:38; Start 08/23/17 at 20:00 Aspirin (Aspirin) 325 mg NOW ONCE PO Last administered on 08/23/17 19:05; Start 08/23/17 at 17:15; Stop 08/23/17 at 17:18; Status DC Atorvastatin Calcium (Lipitor) 10 mg HS PO Last administered on 08/24/17 20: 53; Start 08/23/17 at 21:00 Azithromycin (Zithromax) 500 mg ONCE ONCE PO Last administered on 08/23/17 12:07; Start 08/23/17 at 11:00; Stop 08/23/17 at 11:01; Status DC Bisacodyl (Dulcolax Supp) 10 mg DAILY PRN RECTAL SEVERE CONSITIPATION; Start 08/23/17 at 17:45 Ceftriaxone Sodium 1000 mg/ Sodium Chloride 100 ml @ 200 mls/hr ONCE ONCE IV Last administered on 08/23/17 12:07; Start 08/23/17 at 11:00; Stop 08/23/17 at 11:29; Status DC Divalproex Sodium (Depakote Dr) 250 mg BID PO Last administered on 08/24/17 20:52; Start 08/23/17 at 21:00 Gabapentin (Neurontin) 900 mg QID PO Last administered on 08/24/17 20:52; Start 08/23/17 at 19:00 Guaifenesin (Mucinex Er) 600 mg BID PO Last administered on 08/24/17 20:52; Start 08/23/17 at 21:00 Guaifenesin/ Codeine Phosphate (Robitussin Ac 200-20 Mg/10 ml Liq) 10 ml ONCE ONCE PO Last administered on 08/23/17 09:44; Start 08/23/17 at 08:45; Stop 08/23/17 at 08:46; Status DC Influenza Virus Vaccine (Flu (Quadrivalent) Vaccine Inj) 0.5 ml ONCE ONCE IM ; Start 08/24/17 at 10:00; Stop 08/24/17 at 10:01; Status DC Lactulose (Lactulose Liq) 30 ml DAILY PRN PO SEVERE CONSITIPATION; Start 08/23 at 17:45 Levofloxacin/ Dextrose 150 ml @ 100 mls/hr Q24H IV Last administered on 08:45; Start 08/24/17 at 09:00 Lisinopril (Prinivil) 20 mg DAILY PO Last administered on 08/24/17 08:45; Start 08/24/17 at 09:00 Magnesium Hydroxide (Milk Of Magnesia Liq) 30 ml Q12H PRN PO Mild constipation ; Start 08/23/17 at 17:45 Metoprolol Succinate (Toprol Xl) 25 mg DAILY PO ; Start 08/25/17 at 09:00 Metoprolol Tartrate (Lopressor) 12.5 mg Q12HR PO Last administered on 08:45; Start 08/23/17 at 21:00; Status Future Hold Miscellaneous (Pill Splitter) 1 ea UNSCH PRN OTHER SEE LABEL COMMENTS; Start 08/23/17 at 18:30 Miscellaneous Information 1 DAILY T-DERMAL Last administered on 08/24/17 08: 45; Start 08/24/17 at 09:00 Morphine Sulfate (Morphine Inj) 2 mg Q30M PRN IV CHEST PAIN; Start 08/23/17 at 18:30 Naloxone HCl (Narcan Inj) 0.4 mg UNSCH PRN IV PUSH SEE LABEL COMMENTS; Start 08/23/17 at 11:45 Nicotine (Habitrol 21 Mg Patch.24 Hr) 1 patch DAILY T-DERMAL Last administered on 08/24/17 08:45; Start 08/23/17 at 18:00 Nitroglycerin (Nitrostat Sl) 0.4 mg Q5M PRN SL X 3 doses for chest pain; Start 08/23/17 at 17:15 Ondansetron HCl (Zofran Inj) 4 mg Q6H PRN IVP NAUSEA OR VOMITING; Start at 17:45 Prednisone (Deltasone) 40 mg DAILY PO Last administered on 08/24/17 08:45; Start 08/23/17 at 18:00 Quetiapine Fumarate (SEROquel) 50 mg BID PO Last administered on 08/24/17 20: 53; Start 08/23/17 at 21:00 Senna/Docusate Sodium (Courtney-Colace) 1 tab BID PO Last administered on 20:53; Start 08/23/17 at 21:00 Sennosides (Senokot) 17.2 mg Q12H PRN PO Moderate constipation; Start at 17:45 Sodium Chloride (NS Flush) 2 ml BID IV FLUSH Last administered on 08/24/17 20 :52; Start 08/23/17 at 21:00 Spironolactone (Aldactone) 25 mg DAILY PO Last administered on 08/24/17 08:45 ; Start 08/24/17 at 09:00 A/P Assessment and Plan A/P Suspect underlying COPD, in acute exacerbation - Chest x-ray no acute disease process. - Chest CT reveals peribronchial cuffing in the right upper lobe with ground glass appearance, likely atelectasis, mediastinal adenopathy and hilar fullness. - Lactic acid 1.1 - Patient given IV azithromycin and ceftriaxone in the ED. started on IV Levaquin; will switch to po abx upon discharge. - Prednisone 40mg po daily; will strat tapering down. Mucinex ER 600mg BID. - continue DuoNebs - Influenza negative. Monitor white count. blood cultures negative. - IS at bedside, encourage use - Supportive care Chest pain, atypical,ACS ruled out. CAD s/p cardiac stent implants 2008 Cardiac catheterization 09/2016 revealing patent reportedly had a negative stress test less than a year ago. - complains of midsternal chest pain with cough, likely pleuritic - serial troponin negative. - Continue on ASA 81mg daily. - IV Morphine and Nitro sl prn chest pain CHF with reported EF 42%, not in acute exacerbation; chronic systolic - Patient appears euvolemic - BNP 23 - Resume patient on home dose of lisinopril 20 mg daily, Aldactone 25 mg daily - says that couldn't tolerate the BB in the past. - Monitor for any signs of fluid overload Dyslipidemia - Resumed patient on home dose of atorvastatin 10 mg daily Ongoing tobaccoism - Discussed with patient importance of cessation. Nicotine patch ordered. Bipolar disorder - Resume patient on Depakote 250 mg by mouth twice a day, gabapentin 900 mg 4 times a day and Quetiapine 50mg po BID DVT prophylaxis - Bilateral SCD/SARAH hose Discharge Planning dc home later today if continues to improve-pending CBC. see med list. f/u; pcp. d/w the patient. Vandana Vasquez MD Aug 25, 2017 08:50
[2017-08-25] MEDS ORDERED: PRED5TAB PO (08:53)
[2017-08-25] MEDS ORDERED: LEVA500T33 PO (08:53)
[2017-08-25] MEDS ORDERED: VENTAER INH (08:53)
[2017-08-25] MEDS ORDERED: METO1TAB42 PO (08:53)
--- NOTE | 2017-08-25 08:55 | HHI.DS ---
Discharge Summary Admission Date Aug 23, 2017 at 13:19 Discharge Date: Aug 25, 2017 Admitting Diagnosis Sepsis, chest pain (1) possible copd exacerbation Diagnosis: Principal Procedures none Brief History - From Admission This is a 52-year-old female with a past medical history significant for coronary artery disease status post cardiac stent implantation in 2008 with recent cardiac catheterization September 2016 in [facility] showing patent arteries, CHF with reported EF 42%, dyslipidemia and bipolar disorder who presents to [facility] ED with complaints of shortness of breath, cough with sputum production, sore throat, bilateral ear pain, body ache and pleuritic chest pain with cough for the past 5 days. She states she decided to come in to the ED today after developing chills and involuntary shaking. She reports generalized fatigue. She describes her chest pain as midsternal, sharp , nonradiating and associated with cough. She states she's been feverish but has not recorded a temperature. States that her cough is productive and reports that it's "many colors". She denies any nausea, vomiting or abdominal pain. She reports a good appetite. She lives in transitional group housing and states that multiple residents are sick as well. She smokes about a pack of cigarettes a day. She recently moved to the area from [facility] in March of this year. She denies any complaints of bilateral lower extremity swelling or edema. She does not have a stand in that she follows with in the area. Shee has a history of alcohol abuse but no longer drinks. CBC/BMP: 08/24/17 1038 08/24/17 1038 Significant Findings Laboratory Tests Test 08/23/17 08:50 08/23/17 09:33 08/23/17 11:10 08/23/17 15:40 White Blood Count 17.3 TH/MM3 (4.0-11.0) Neutrophils (%) (Auto) 80.7 % (16.0-70.0) Lymphocytes (%) (Auto) 8.8 % (9.0-44.0) Monocytes (%) (Auto) 8.1 % (0.0-8.0) Neutrophils # (Auto) 14.0 TH/MM3 (1.8-7.7) Monocytes # (Auto) 1.4 TH/MM3 (0-0.9) Band Neutrophils % 15 % (0-6) Neutrophils # (Manual) 13.5 TH/MM3 (1.8-7.7) Estimat Glomerular Filtration Rate 85 ML/MIN (>89) Troponin I LESS THAN 0.02 NG/ML Urine Occult Blood SMALL (NEG) Urine Mucus FEW /lpf (OCC) Urine Opiates Screen POS (NEG) Test 08/23/17 17:22 08/23/17 20:00 08/23/17 23:30 08/24/17 10:38 Troponin I LESS THAN 0.02 NG/ML LESS THAN 0.02 NG/ML White Blood Count 16.0 TH/MM3 (4.0-11.0) Red Blood Count 3.98 MIL/MM3 (4.00-5.30) Hemoglobin 11.5 GM/DL (11.6-15.3) Hematocrit 34.9 % (35.0-46.0) Neutrophils (%) (Auto) 87.4 % (16.0-70.0) Lymphocytes (%) (Auto) 7.8 % (9.0-44.0) Neutrophils # (Auto) 14.0 TH/MM3 (1.8-7.7) Random Glucose 179 MG/DL (74-106) Estimat Glomerular Filtration Rate 81 ML/MIN (>89) Imaging Last Impressions Chest X-Ray 08/23/17 0841 Signed Impressions: Service Date/Time: Wednesday, August 23, 2017 08:47 - CONCLUSION: Normal examination. Tutu Shelton MD Chest CT 08/23/17 0000 Signed Impressions: Service Date/Time: Wednesday, August 23, 2017 11:14 - CONCLUSION: Peribronchial cuffing the right upper lobe with some groundglass of a likely atelectasis. Definite mediastinal adenopathy and hilar fullness of uncertain significance. Tutu Shelton MD PE at Discharge GENERAL: This is a well-nourished, well-developed patient, in no apparent distress. CARDIOVASCULAR: Regular rate and regular rhythm without murmurs, gallops, or rubs. RESPIRATORY: Clear to auscultation. Breath sounds equal bilaterally. No wheezes , rales, or rhonchi. GASTROINTESTINAL: Abdomen soft, non-tender, nondistended. Normal, active bowel sounds MUSCULOSKELETAL: Extremities without clubbing, cyanosis, or edema. NEURO: Alert & Oriented x4 to person, place, time, situation. Moves all ext x4 Hospital Course patient was admitted with possible COPD exacerbation and chest pain. she was started on antibiotic, neb treatment and steroids.overall her condition improved. she was advised to stop smoking. her cardiac enzymes were negative. she will have a f/u with her PCP upon discharge. Pt Condition on Discharge: Fair Discharge Disposition: Discharge Home Discharge Time: <= 30 minutes Discharge Instructions DIET: Follow Instructions for: Heart Healthy Diet Activities you can perform: Regular-No Restrictions Follow up Referrals: PCP Follow-up New Medications: Albuterol 18 GM Inh (Ventolin Hfa 18 GM Inh) 90 Mcg/Act Aer 2 PUFF INH Q4-6H PRN for SHORTNESS OF BREATH, #1 INHALER 0 Refills Levofloxacin (Levaquin) 500 Mg Tablet 500 MG PO DAILY for Infection for 5 Days, #5 TAB 0 Refills Prednisone (Prednisone) 5 Mg Tab 5 MG PO DIRECTED for copd for 8 Days, TAB 0 Refills 30 mg po daily for two days then 20 mg po daily for two days then 10 mg po daily for two days then 5 mg po daily for two days then stop. Continued Medications: Aspirin (Aspirin) 81 Mg Chew 81 MG CHEW ONCE, #1 TAB 0 Refills Atorvastatin (Atorvastatin) 10 Mg Tab 10 MG PO HS for Cholesterol Management, #30 TAB [address] (Depakote DR) 250 Mg Tabdr 250 MG PO BID for Control Seizures, #60 TAB 0 Refills Gabapentin (Gabapentin) 800 Mg Tab 900 MG PO QID, #90 TAB 0 Refills Lisinopril (Lisinopril) 20 Mg Tab 20 MG PO DAILY, #30 TAB 0 Refills Quetiapine (Quetiapine) 50 Mg Tab 50 MG PO BID, #60 TAB 0 Refills Spironolactone (Aldactone) 25 Mg Tab 25 MG PO DAILY, #30 TAB 0 Refills Vandana Vasquez MD Aug 25, 2017 08:55
[2017-08-25] MEDS ORDERED: METOPROLOL SUCCINATE 25 MG EXTENDED RELEASE TAB PO SCH (09:00)
[2017-08-25 11:27] LABS: AUTOMATED NEUTROPHIL # 10.9 TH/MM3 (1.8-7.7); BASOPHIL % 0.2 % (0.0-2.0); EOSINOPHIL # 0.2 TH/MM3 (0-0.4); EOSINOPHIL % 1.4 % (0.0-4.0); HEMATOCRIT 33.6 % (35.0-46.0); HEMOGLOBIN 11.4 GM/DL (11.6-15.3); LYMPH % 17.3 % (9.0-44.0); LYMPHOCYTE # 2.6 TH/MM3 (1.0-4.8); MEAN CELL VOLUME 87.4 FL (80.0-100.0); MEAN CORPUSCULAR HEMOGLOBIN 29.7 PG (27.0-34.0); MEAN CORPUSCULAR HGB CONC 33.9 % (32.0-36.0); MEAN PLATELET VOLUME 7.9 FL (7.0-11.0); MONO % 7.7 % (0.0-8.0); MONOCYTE # 1.1 TH/MM3 (0-0.9); NEUT % 73.4 % (16.0-70.0); PLATELET COUNT 332 TH/MM3 (150-450); RED BLOOD COUNT 3.84 MIL/MM3 (4.00-5.30); RED CELL DISTRIBUTION WIDTH 13.4 % (11.6-17.2); WHITE BLOOD COUNT 14.8 TH/MM3 (4.0-11.0)
[2017-08-25 12:02] VITALS: BP 135/63; PULSE 72; RESP 23; TEMP 97.6; O2SAT 95
[2017-08-25] MEDS ORDERED: INFLUENZA VIRUS VACCINE (QUADRIVALENT) 0.5 ML SYR IM ONE (14:00)
[2017-08-25 14:45] LABS: MYCOPLASMA PNEUMONIAE IGG Positive (Negative); MYCOPLASMA PNEUMONIAE IGM Negative (Negative)
== END 2017-08-25 15:06 | disposition home or self-care (01) | DRG 191 ==
LOC: NEPC 08:12 → NEDA 11:43 → INTOOBSV 11:43 → NEPFCDU 13:11 → OBSVTOIN 13:19
PROVIDERS: ADMIT Internal Medicine; ATTEND Internal Medicine
DX: J44.1 Chronic obstructive pulmonary disease with (acute) exacerbation (principal); I11.0 Hypertensive heart disease with heart failure; I50.22 Chronic systolic (congestive) heart failure; R07.81 Pleurodynia; F17.210 Nicotine dependence, cigarettes, uncomplicated; I25.10 Atherosclerotic heart disease of native coronary artery without angina pectoris; Z95.5 Presence of coronary angioplasty implant and graft; F31.9 Bipolar disorder, unspecified; E78.5 Hyperlipidemia, unspecified; Z23 Encounter for immunization
CPT/HCPCS: 71010; 71250; 80048; 80061; 80307; 81001; 83605; 83880; 84484; 85007; 85025; 85027; 85610; 85730; 86738; 87040; 87449; 87804; 90686; 93005; 94150; 94640; 94664; 96360; J0696; J1956; J7030; J7512; Q2038

== ENCOUNTER 2017-08-30 14:52 | Emergency (ER) | payer OTHER ==
[~2017-08-30 14:52] MED LIST: ASPI-516 CHEW; ATOR10TA15 PO; DEPA250T2 PO; GABA800T PO; LEVA500T33 PO; LISI-515 PO; PRED5TAB PO; QUET5TAB PO; SPIR25 PO; VENTAER INH
[2017-08-30 14:55] VITALS: BP 135/73; PULSE 89; RESP 14; TEMP 99; O2SAT 95
--- NOTE | 2017-08-30 15:10 | PD ---
HPI Chief Complaint: Cold / Flu Symptoms Time Seen by Provider: 15:02 Travel History International Travel<30 days: No Contact w/Intl Traveler<30days: No Traveled to known affect area: No History of Present Illness HPI The patient was seen and examined in the presence of the nurse. This patient complains of pain in her left low rib cage when she twists or moves or coughs. She is not having fever. She is worried about having thrush because of all of the antibiotic she's been taking. Duration is 2 days. Recently got out of the hospital and is been on Levaquin for 8 days. PFSH Past Medical History Hx Anticoagulant Therapy: Yes (ASA) Anxiety: Yes Depression: Yes Heart Rhythm Problems: No Cancer: No Cardiac Catheterization: Yes Cardiovascular Problems: Yes (DE; STENTS; LOWER EF) High Cholesterol: Yes Chest Pain: No Congestive Heart Failure: No Endocrine: No Genitourinary: No Hypertension: Yes Immune Disorder: No Musculoskeletal: No Neurologic: No Psychiatric: Yes Reproductive: No Respiratory: No Seizures: Yes Past Surgical History Abdominal Surgery: Yes (2010 Hernia repair) Cardiac Surgery: Yes (cardiac cath Sep 2016) Ear Surgery: Yes Endocrine Surgery: No Eye Surgery: No Genitourinary Surgery: No Gynecologic Surgery: Yes (2009 total hysterectomy) Hysterectomy: Yes (TOTAL) Oral Surgery: No Thoracic Surgery: No Other Surgery: Yes (PYLONIDAL CYST) Social History Alcohol Use: No Tobacco Use: No Substance Use: No Allergies-Medications (Allergen,Severity, Reaction): Coded Allergies: No Known Allergies (Unverified , 08/23/17) Reported Meds & Prescriptions Reported Meds & Active Scripts Active Ventolin Hfa 18 GM Inh (Albuterol Sulfate) 90 Mcg/Act Aer 2 Puff INH Q4-6H PRN Reported Quetiapine (Quetiapine Fumarate) 50 Mg Tab 50 Mg PO BID Depakote DR (Divalproex Sodium) 250 Mg Tabdr 250 Mg PO BID Gabapentin 800 Mg Tab 900 Mg PO QID Aspirin 81 Mg Chew 81 Mg CHEW ONCE Atorvastatin (Atorvastatin Calcium) 10 Mg Tab 10 Mg PO HS Lisinopril 20 Mg Tab 20 Mg PO DAILY Aldactone (Spironolactone) 25 Mg Tab 25 Mg PO DAILY Review of Systems General / Constitutional: No: Fever HENT: No: Headaches Cardiovascular: Positive: Chest Pain or Discomfort Respiratory: Positive: Cough Physical Exam Narrative GENERAL: Well-nourished, well-developed patient in no apparent distress. SKIN: Focused skin assessment reveals no rash and nodules. Skin is Warm and dry. HEAD: Atraumatic. Normocephalic. EYES: Pupils equal and round. No scleral icterus. No injection or drainage. ENT: No nasal bleeding or discharge. Mucous membranes pink and moist. No thrush seen NECK: Trachea midline. No JVD. CARDIOVASCULAR: Regular rate and rhythm. No murmur appreciated. RESPIRATORY: No accessory muscle use. Clear to auscultation. Breath sounds equal bilaterally. GASTROINTESTINAL: Abdomen soft, non-tender, nondistended. Hepatic and splenic margins not palpable. MUSCULOSKELETAL: No obvious deformities. No clubbing. No cyanosis. No edema. NEUROLOGICAL: Awake and alert. No obvious cranial nerve deficits. Motor grossly within normal limits. Normal speech. PSYCHIATRIC: Appropriate mood and affect; insight and judgment normal. Data Data Last Documented VS Vital Signs Date Time Temp Pulse Resp B/P (MAP) Pulse Ox O2 Delivery O2 Flow Rate FiO2 08/30/17 15:24 95 08/30/17 14:55 99.0 89 14 135/73 (93) Orders Orders Chest, Single Ap (08/30/17 ) [facility] Medical Decision Making Medical Screen Exam Complete: Yes Emergency Medical Condition: Yes Medical Record Reviewed: Yes Differential Diagnosis Muscle strain, bronchitis, pneumothorax Narrative Course I have reviewed the patient's electronic medical record. Reviewed her recent discharge summary for 5 days ago I reviewed her chest x-ray which is normal She has musculoskeletal pain which I suspect will resolve, likely from excessive coughing Diagnosis Primary Impression: Musculoskeletal chest pain Additional Instructions: The patient was advised to follow up with their physician and return if they worsen. Med/Other Pt SpecificInfo: Other Disposition: 01 DISCHARGE HOME Condition: Stable Moody Ny MD Aug 30, 2017 15:10
--- NOTE | 2017-08-30 16:17 | RADRPT ---
EXAM DATE/TIME: 08/30/2017 15:29 [place] COMPARISON: CHEST SINGLE AP, August 23, 2017, 8:47. INDICATIONS : Cough & pain under the left breast. MEDICAL HISTORY : Seizures. Hypertension. Cardiovascular disease SURGICAL HISTORY : Hysterectomy. ENCOUNTER: Initial ACUITY: 2 days PAIN SCORE: 6/10 LOCATION: Left chest FINDINGS: A single view of the chest demonstrates the lungs to be symmetrically aerated without evidence of mas s, infiltrate or effusion. The cardiomediastinal contours are unremarkable. Osseous structures are intact. CONCLUSION: No acute disease. Ton Anderson MD on August 30, 2017 at 16:16 Board Certified Radiologist. This report was verified electronically.
== END 2017-08-30 17:07 | disposition home or self-care (01) ==
LOC: NEPD 14:52
DX: R07.89 Other chest pain (principal); R05 Cough; E78.00 Pure hypercholesterolemia, unspecified; I10 Essential (primary) hypertension; Z79.82 Long term (current) use of aspirin
CPT/HCPCS: 71010; 99283